=== PATIENT | male | born 1970 | race Asian ===

== ENCOUNTER 2023-10-20 23:09 | Emergency (ER) | payer OTHER ==
[~2023-10-20] VITALS: Ht 170.2 cm; Wt 68.0 kg
[2023-10-20 23:18] VITALS: BP_SYST 133; PULSE 64; RESP 18; TEMP 97.5; O2SAT 99
[2023-10-21] MEDS: ACETAMINOPHEN 500 MG TABLET PO ONE (00:33)
[2023-10-21] MEDS: KETOROLAC TROMETHAMINE 30 MG VIAL IM ONE (00:33)
[2023-10-21 02:24] VITALS: BP_SYST 124; PULSE 79; RESP 20; TEMP 97.5; O2SAT 98
== END 2023-10-21 02:24 | disposition home or self-care (01) ==
LOC: SED 23:09
DX: M54.6 Pain in thoracic spine (principal); R07.81 Pleurodynia; M79.641 Pain in right hand
CPT/HCPCS: 99285; 71250; 73130; 96372; J1885